=== PATIENT | female | born 2005 | race Caucasian/White ===

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

== ENCOUNTER 2025-06-05 16:54 | Outpatient (CLI) | payer OTHER, SELFPAY ==
--- NOTE | ~2025-06-05 | XR_ITS ---
Left foot Technique: AP and lateral views were obtained. Clinical History: Pain Findings: No acute fracture or dislocation is seen. Osseous alignment is anatomic. Joint spaces are p reserved without erosive or degenerative change. Soft tissues are unremarkable. Impression: Unremarkable left foot radiographs. Reviewed, dictated and finalized at location . Impression: Unremarkable left foot radiographs.
--- NOTE | ~2025-06-05 | XR_ITS ---
Right foot Technique: AP and lateral views were obtained. Clinical History: Pain Findings: No acute fracture or dislocation is seen. Osseous alignment is anatomic. Joint spaces are p reserved without erosive or degenerative change. Soft tissues are unremarkable. Impression: Unremarkable right foot radiographs. Reviewed, dictated and finalized at location . Impression: Unremarkable right foot radiographs.
--- OUTSIDE RECORDS SUMMARY | 2025-06-05 16:58 | XMS_ITS | Clinical Summary ---
Author Organization [facility] Address [address] [place] [id number] Care Team Providers Care Systems Administrator Name Role Phone Radha Bliss MD Primary Care Provider [phone] Allergies Active Allergy Reactions Criticality Noted Date Comments Soap Rash Low 03/03/2022 Laundry soap Medications VOLNEA 0.15-0.02/0.01 MG (12/04) tablet Take 1 tablet by mouth daily. 08/31/2024 Active metFORMIN ER (GLUCOPHAGE-XR) 500 MG 24 hr tablet Take 1 tablet (500 mg total) by mouth daily with breakfast. 08/31/2024 Active naproxen (NAPROSYN) 500 MG tablet Take 1 tablet (500 mg total) by mouth 2 (two) times daily as needed. 06/27/2024 Active FLUoxetine (PROZAC) 20 MG capsule Take 1 capsule (20 mg total) by mouth daily. 06/14/2024 Active Active Problems No known active problems Encounters Date Type Department Care Team Description 04/23/2025 4:42 PM CDT - 04/23/2025 6:29 PM CDT Emergency [facility] [address] [place] [address] [place] [address] Everardo Jasmine MD Urinary Frequency Discharge Disposition: Home or Self Care (Routine Discharge) 04/23/2025 Travel from Last 3 Months Social History Tobacco Use Types Packs/Day Years Used Date Smoking Tobacco: Never Smokeless Tobacco: Never Alcohol Use Standard Drinks/Week Comments Never 0 (1 standard drink = 0.6 oz pur e alcohol) PHQ-2 Answer Date Recorded PHQ-2 Score - If the patient scores above 3, please move on to questions 3-9 0 03/03/2022 Comments No Sex and Gender Information Value Date Recorded Sex Assigned at Female 04/23/2025 4:44 PM CDT Legal Sex Female 11:59 AM CDT Gender Identity Not on file Sexual Orientation Not on file Last Filed Vital Signs Vital Sign Reading Time Taken Comments Blood Pressure 126/77 04/23/2025 6:26 PM CDT Pulse 88 04/23/2025 6:26 PM CDT Temperature 35.4 C (95.8 F) 04/23/2025 4:51 PM CDT Respiratory Rate 16 04/23/2025 6:26 PM CDT Oxygen Saturation 95% 04/23/2025 6:26 PM CDT Inhaled Oxygen Concentration - - Weight 99.8 kg (220 lb) 04/23/2025 4:51 PM CDT Height 162.6 cm (5' 4) 04/23/2025 4:51 PM CDT Body Mass Index 37.76 04/23/2025 4:51 PM CDT Plan of Treatment Health Maintenance Due Date Last Done Comments Annual Physical 2008 Meningococcal B Vaccine (1 of 2 - Standard) 2021 Hepatitis C 2023 COVID-19 Vaccine (3 - season) 2024 09/08/2021, 08/18/2021 DTaP, Tdap and Td Vaccines (7 - Td or Tdap) 06/19/2027 06/19/2017, 06/18/2011, 02/19/2007, Additional history exists Hepatitis B Vaccines Completed 08/17/2006, 01/23/2006, 2005 Pneumococcal Vaccine: Pediatrics (0 to 5 Years) and At-Risk Patients (6 to 49 Years) Aged Out 11/18/2006, 05/15/2006, 03/13/2006, Additional history exists No longer eligible based on patient's age to complete this topic Meningococcal Vaccine Aged Out 06/19/2017 No tree marce eligible based on patient's age to complete this topic HPV Vaccines Completed 05/29/2020, 12/23/2018 RSV Immunizations Under 20 Months Aged Out No longer eligible based on patient's age to complete this topic Procedures Procedure Name Priority Date/Time Associated Diagnosis Comments URINE BACTERIA CULTURE STAT 04/23/2025 5:06 PM CDT URINALYSIS MICRO ONLY Routine 04/23/2025 5:06 PM CDT from Last 3 Months Results * (ABNORMAL) URINE BACTERIA CULTURE (04/23/2025 5:06 PM CDT) SPEC DESCRIPTION URINE CLEAN CATCH 04/23/2025 6:28 PM CDT [facility] SPECIAL REQUESTS NO SPECIAL REQUEST 04/23/2025 6:28 PM CDT [facility] CULTURE RESULT 10,000-49,0 00 COL/ML ESCHERICHIA COLI (A) 04/26/2025 6:46 AM CDT [facility] URINE SPECIMEN OBTAINED BY CLEAN CATCH PROCEDURE / Unknown 04/23/2025 5:06 PM CDT 04/23/2025 6:39 PM CDT Narrative Organism Antibiotic Method Susceptibility Escherichia coli AMPICILLIN SANDEE (VITEK) <=2: Sensitive Escherichia coli AMPICILLIN/SULBACTAM SANDEE (VITEK) <=2: Sensitive Escherichia coli CEFTRIAXONE SANDEE (VITEK) <=1: Sensitive Escherichia coli CEFTAZIDIME SANDEE (VITEK) <=1: Sensitive Escherichia coli CEFAZOLIN SANDEE (VITEK) <=4: Sensitive Escherichia coli ESBL SANDEE (VITEK) NEG: Sensitive Escherichia coli NITROFURANTOIN SANDEE (VITEK) 32: Sensitive Escherichia coli GENTAMICIN SANDEE (VITEK) <=1: Sensitive Escherichia coli LEVOFLOXACIN SANDEE (VITEK) <=0.12: Sensitive Escherichia coli PIPRACIL/TAZO SANDEE (VITEK) <=4: Sensitive Escherichia coli TRIMETH-SULFAMETH. SANDEE (VITEK) <=20: Sensitive Everardo Jasmine MD MICROBIOLOGY - GENERAL QUIANA CHAO Final Result [facility] [address] [place] [address], [place] [phone] [facility] [address] [place] [address] [place] [address], * (ABNORMAL) URINALYSIS MICROSCOPIC ONLY (04/23/2025 5:06 PM CDT) WBC/HPF 33(H) <6 /HPF 04/24/2025 11:29 AM CDT [facility] RBC/HPF 16(H) <6 /HPF 04/24/2025 11:29 AM CDT [facility] AMORPHOUS CRYSTAL MODERATE /HPF 04/24/2025 11:29 AM CDT [facility] SQUAMOUS EPITHELIALS RARE /HPF 04/24/2025 11:29 AM CDT [facility] URINE SPECIMEN OBTAINED BY CLEAN CATCH PROCEDURE / Unknown 04/23/2025 5:06 PM CDT Everardo Jasmine MD URINE ORDERABLES Final Resu lt [facility] [address] [place] [address], from Last 3 Months Insurance [id number] [id number] Care Teams Systems Administrator Relationship Specialty Start Date End Date Radha Bliss MD [address] [place] [address] [address] KENNY [address] [place] [id number] PCP - General FAMILY PRACTICE 04/23/25
== END 2025-06-05 16:55 | disposition home or self-care (01) ==
PROVIDERS: PCP Family Medicine; Visit Provider Student in an Organized Health Care Education/Training Program
DX: M79.671 Pain in right foot (principal); M79.672 Pain in left foot
CPT/HCPCS: 73620

== ENCOUNTER 2025-07-19 07:41 | Outpatient (CLI) | payer OTHER, SELFPAY ==
--- NOTE | 2025-08-14 09:42 | WPDSLEEPSTUD ---
Sleep Study Date of Study: 07/19/25 Ordering Provider: Orville Wilkerson APRN Interpreting Physician: Josefa Elise DO Sleep Study Type: Polysomnogram Height: 1.63 m Weight: 104.326 kg Body Mass Index: 39.4 Neck Circumference (inches): 16 Webster: 11 Reason for Sleep Study Daytime hypersomnia, nocturnal gasping and unrefreshing sleep Sleep History The patient is a 19-year-old female that had a sleep study ordered by her primary care for evaluation of sleep apnea. The patient frequently awakens from sleep short of breath. She denies awakening at night with heartburn, belching or cough. She constantly snores and is frequently loud enough that others complain. She occasionally has trouble sleeping when she has a cold. She frequently wakes up gasping for air throughout the night. She constantly has breathing problems at night observed by herself or others. She frequently sweats excessively at night. She denies having heart palpitations or irregular heartbeats during the night. She rarely falls asleep during the day and never while driving. She denies cataplexy. She frequently has trouble at school or work due to sleepiness. She constantly feels unable to move while waking up or falling asleep. She constantly experiences vivid dreamlike scenes upon awakening or falling asleep. She denies feeling afraid of going to sleep. She constantly has nightmares. She constantly remembers her dreams. She frequently has thoughts racing through her mind. She occasionally feels sad or depressed and frequently feels anxious. She constantly has muscular tension. She denies noticing parts of her body jerk. She occasionally kicks during the night. She denies experiencing any crawling and aching feelings in her legs and denies having leg pain during the night. She denies grinding her teeth during sleep and denies awakening with morning jaw pain. She is occasionally bothered by pain during the day but never awakened by pain during the night. She constantly wakes up feeling stiff in the morning. She constantly wakes up with sore or achy muscles. She constantly wakes up with pain in the neck, spine or other joints. She goes to bed between 11:00 p.m. to midnight on weekdays and between midnight to 1:00 a.m. on the weekends. It takes her 1 hour to fall asleep. She wakes up 4-5 times throughout the night for unknown reasons and it takes 30 minutes to fall back asleep. She wakes up between 7:00 a.m. to noon on weekdays and between 11:00 a.m. to 1:00 p.m. on the weekends. She does not have a set amount of time that she gets for sleep per night. She will stay in bed for 1 hour after waking up in the morning. She currently lives with her mother. She denies consuming any caffeinated beverages within 2 hours of bedtime. She denies engaging in physical exercise before bedtime. She will read and watch television before falling asleep. She will take naps in afternoon or the evening but they are not refreshing. She consumes 12 oz of caffeinated beverage per day. She denies tobacco, alcohol and recreational drug use. [facility] Family History Family History Father Diabetes mellitus Hypertension Family history of elevated blood lipids Grandparent Diabetes mellitus Depression Hypertension Family history of malignant neoplasm of brain Family history of malignant neoplasm of breast Mother Family history of mental disorder Depression Family history of malignant neoplasm of breast in first degree relative Social History Social History Smoking status: Never smoker Alcohol intake: never Substance use: never Substance use type: does not use Do You Feel Safe in your Home?: No Lack of Transportation: No Lack of Food: Never True Current Housing: I Have Housing Concerned About Future Housing: No Difficulty Paying Gas/Electric Bills: No Difficulty Paying for Meds: No Currently Unemployed: No Education: Decline to Answer Difficulty w/ Childcare or Family Care: No Living arrangements: with family Occupation/Education: student Gender identity (if verbalized by the patient): Female Sexual Orientation (if Verbalized by the Patient): Straight or Heterosexual Medications Home Medications ?Medication ?Instructions ?Recorded ?Confirmed ?Type naproxen 500 mg tablet 500 mg PO BID PRN pain #60 tabs 06/27/24 06/06/25 Rx metformin 500 mg tablet,extended 500 mg PO BID #180 tabs 08/31/24 06/06/25 Rx release 24 hr amoxicillin 875 mg-potassium 1 tablet PO Q12H 10 days #20 tabs 07/22/25 Rx clavulanate 125 mg tablet ofloxacin 0.3 % ear drops 5 drp RIGHT EAR BID 7 days #5 mL 07/22/25 Rx Sleep Procedure A full night polysomnogram using the Right On Interactive multi-channel system recorded the standard physiologic parameters including EEG, EOG, submentalis EMG, anterior tibialis EMG, EKG, body position, nasal and oral airflow using nasal pressure sensor and thermistor.? Respiratory parameters of chest and abdominal movements were recorded with Respiratory Inductance Plethysmography belts. Oxygen saturation was recorded by pulse oximetry. Video monitoring was also performed. Sleep stages, periodic limb movements, and EEG arousals were scored in 30 second epochs according to the criteria of the AASM Scoring Manual. The Apnea-Hypopnea Index was calculated using [facility] guidelines for definition of hypopnea with 4% O2 desaturations while scoring respiratory events. Sleep Architecture The total recording time was 408.6 minutes.? The total sleep time was 400.0 minutes. Sleep latency was 3.0 minutes. REM latency was 81.5 minutes. Sleep efficiency was 97.9%. The patient had 11 awakenings for an awakening index of 1.6. Wake after sleep onset time was 6.0 minutes. The patient spent 5.5 minutes, 1.4% of total sleep time in Stage N1. The patient spent 193.5 minutes, 48.4% in Stage N2. The patient spent 139.0 minutes, 34.8% in Stage N3. The patient spent 62.0 minutes, 15.5% in Stage REM sleep. Respiratory Analysis The patient had 55 hypopneas, 2 obstructive apneas and 23 central apneas for an overall Apnea Hypopnea Index of 12.0. The REM Apnea Hypopnea Index was 19.4. The NREM Apnea Hypopnea Index was 11.5. The patient had a Central Apnea Hypopnea Index of 3.5. There was no evidence of Aureliano-Carlson Respirations. Arousals There were 90 total arousals for an arousal index of 13.5. There were 30 spontaneous arousals for an index of 4.5. There were 35 arousals due to respiratory events for an index of 5.3. There were 5 arousals due to periodic limb movements for an index of 0.8.? There were 24 arousals due to isolated limb movements for an index of 3.6. Periodic Limb Movements The patient had 43 isolated limb movements with an index of 6.5. The patient had 14 periodic limb movements with an index of 2.1. Patient had a total of 57 limb movements with a total limb movement index of 8.6. Oximetry Data The patient had an average oxygen saturation of 94.9% in sleep with a minimum oxygen saturation of 88.0% and a maximum oxygen saturation of 99.0%. The patient had 81 oxygen desaturations that were 4% or greater resulting in an Oxygen Desaturation Index of 12.2.? The patient spent 0 minutes of total sleep time with an oxygen saturation below 88%. Snoring Profile Moderate to loud snoring was present throughout the study. Cardiac Profile The EKG showed normal sinus rhythm. No arrhythmias were present throughout the study. The patient had an average pulse rate of 79.0 bpm with a minimum pulse of rate of 61.0 bpm and a maximum pulse rate of 111.0 bpm.? EEG Profile No signs of seizure activity seen. Assessment and Plan Assessment and Plan (1) DAE (obstructive sleep apnea): Code(s): G47.33 - Obstructive sleep apnea (adult) (pediatric) Status: Acute Assessment and Plan: The patient had an overall AHI of 12.0 with desaturation down to 88%. This is consistent with mild sleep apnea. Due to the patient's excessive daytime hypersomnia (ESS of 11/24), the patient qualifies for treatment. I recommend that the patient be prescribed AutoPAP 5-15 cm H2O, CPAP mask/filters/tubing and heated humidity. A mandibular advancement device is also an acceptable treatment option. This should be used with all episodes of sleep.? Compliance should be reviewed within 31-90 days of starting therapy for usage greater than 4 hours per night greater than 70% of the nights. The patient should be asked about symptoms such as?excessive daytime sleepiness, quality of sleep, decreased nocturia, increased?mental functioning such as memory, mood, and concentration. Data The data obtained during this sleep study is adequate for interpretation. Certification This sleep study has been reviewed by a board certified sleep medicine physician.
[2025-08-14 17:01] VITALS: BMI 39.4
== END 2025-07-20 06:56 | disposition home or self-care (01) ==
PROVIDERS: PCP Family Medicine; Visit Provider Student in an Organized Health Care Education/Training Program
DX: G47.10 Hypersomnia, unspecified (principal); G47.9 Sleep disorder, unspecified; G47.33 Obstructive sleep apnea (adult) (pediatric)
CPT/HCPCS: 95810

== ENCOUNTER 2025-07-22 16:42 | Emergency (ER) | payer OTHER, SELFPAY ==
[2025-07-22 16:54] VITALS: BP 115/51; PULSE 83; RESP 18; TEMP 36.4; O2SAT 100
--- NOTE | 2025-07-22 17:07 | ED_ITS ---
HPI - Ear Problem General Chief complaint: Ear Stated complaint: swimmer's ear Time Seen by Provider: 07/22/25 16:43 Source: patient Mode of arrival: ambulatory Limitations: no limitations History of Present Illness HPI Narrative: 19-year-old female presents to [facility] with complaints of right ear pain and yellow colored drainage for the past 10 days. Patient reports that she did go swimming prior to symptoms starting. Patient has been taking [id number] Tylenol with little relief. Patient reports last ear infection was approximately 10 years ago. Patient denies sick contacts. Patient denies recent travel. Patient denies fever, body aches, chills, nausea, vomiting or diarrhea. MD Complaint: ear pain and ear discharge Location: right ear Duration: constant Severity: mild Discharge from ear: Reports yes - purulent Treatment prior to arrival: oral analgesic Related Data Allergies Allergy/AdvReac Type Severity Reaction Status Date / Time No Known Allergies Allergy Mild Verified 07/22/25 16:52 Review of Systems Constitutional: Constitutional: Denies chills, Denies fatigue, Denies fever(s) and Denies weakness ENT: Denies vertigo, Denies dizziness, Denies epistaxis, Denies nasal congestion and Denies sore throat Comments: Right ear pain and drainage Cardiovascular: Cardiovascular: Denies chest pain Respiratory: Respiratory: Denies cough, Denies dyspnea and Denies wheezing Gastrointestinal: Gastrointestinal: Denies diarrhea, Denies nausea and Denies vomiting Musculoskeletal: Musculoskeletal: Denies arthralgias and Denies joint swelling Integumentary/Breasts: Skin/Breast: Denies pruritus, Denies erythema and Denies rash Neurologic: Denies dizziness, Denies syncope and Denies headache(s) [facility] Family History Family History Father Diabetes mellitus Hypertension Family history of elevated blood lipids Grandparent Diabetes mellitus Depression Hypertension Family history of malignant neoplasm of brain Family history of malignant neoplasm of breast Mother Family history of mental disorder Depression Family history of malignant neoplasm of breast in first degree relative Social History Social History Smoking status: Never smoker Alcohol intake: never Substance use: never Substance use type: does not use Do You Feel Safe in your Home?: No Lack of Transportation: No Lack of Food: Never True Current Housing: I Have Housing Concerned About Future Housing: No Difficulty Paying Gas/Electric Bills: No Difficulty Paying for Meds: No Currently Unemployed: No Education: Decline to Answer Difficulty w/ Childcare or Family Care: No Living arrangements: with family Occupation/Education: student Gender identity (if verbalized by the patient): Female Sexual Orientation (if Verbalized by the Patient): Straight or Heterosexual Comments At time of signature, I agree with nursing past medical, surgical, social and family history. There is no relevant family history pertinent to the presenting complaint. Exam Const: General: healthy appearing and no acute distress Nutritional Appearance: well nourished Orientation/consciousness: patient oriented x3 HENMT: Head: normal to inspection Ears: Abnormal EAC present erythema on the right and TM abnormal dull on the right and erythematous on the right Face/Nose/Sinus: Normal external nose present and Normal nares present Mouth: Yes Normal oral and palatal mucosa present and Yes moist mucous membranes T eeth and gingiva: dentition normal Throat: posterior oropharynx normal and uvula midline Eyes: Conjunctivae: conjunctivae normal Neck: Neck: normal visual inspection Resp: Effort & Inspection: normal respiratory effort and not labored Auscultation: clear to auscultation bilaterally, no crackles, no rales, no rhonchi and no wheezes Cardio: Rate: regular rate Rhythm: regular rhythm Heart sounds: no murmurs Skin: General skin exam: normal color Rashes: no rashes Neuro: General: patient oriented x3 and moves all extremities Speech: normal speech Gait exam (Neuro): Normal gait present Extrem: General: normal to inspection Psych: Affect: normal affect Attitude: cooperative Course Course Level of Care: Express Care Visit Vital Signs Vital signs: Vital Signs Temperature 36.4 C 07/22/25 16:54 Pulse Rate 83 07/22/25 16:54 Respiratory Rate 18 07/22/25 16:54 Blood Pressure 115/51 L 07/22/25 16:54 Pulse Oximetry 100 07/22/25 16:54 Oxygen Delivery Room Air 07/22/25 16:54 Temperature 36.4 C 07/22/25 16:54 Pulse Rate 83 07/22/25 16:54 Respiratory Rate 18 07/22/25 16:54 Blood Pressure 115/51 L 07/22/25 16:54 Pulse Oximetry 100 07/22/25 16:54 Oxygen Delivery Room Air 07/22/25 16:54 Medical Decision Making MDM Narrative Medical decision making narrative: educated patient to avoid getting water in her right ear. Informed patient alternate Motrin and Tylenol as needed. Educated patient to follow-up with primary care provider if symptoms do not improve Differential Diagnosis Differential Diagnosis: Acute otalgia, cerumen impaction, viral illness Vital Signs Vital Signs: Vital Signs Temperature 36.4 C 07/22/25 16:54 Pulse Rate 83 07/22/25 16:54 Respiratory Rate 18 07/22/25 16:54 Blood Pressure 115/51 L 07/22/25 16:54 Pulse Oximetry 100 07/22/25 16:54 Oxygen Delivery Room Air 07/22/25 16:54 Temperature 36.4 C 07/22/25 16:54 Pulse Rate 83 07/22/25 16:54 Respiratory Rate 18 07/22/25 16:54 Blood Pressure 115/51 L 07/22/25 16:54 Pulse Oximetry 100 07/22/25 16:54 Oxygen Delivery Room Air 07/22/25 16:54 Critical Care Time Critical Care Time Critical Care Time: No Discharge Plan Discharge Clinical Impression: Otitis externa Qualifiers: Otitis externa type: swimmer's ear Chronicity: acute Laterality: right Qualified Code(s): H60.331 - Swimmer's ear, right ear Otitis media Qualifiers: Otitis media type: unspecified Chronicity: acute Qualified Code(s): H66.90 - Otitis media, unspecified, unspecified ear Patient Disposition: Home Condition: Stable Instructions: Antibiotic Form, Swimmer's Ear (ED), Ear Infection (ED) Additional Instructions: alternate Motrin and Tylenol as needed for pain Avoid getting water in your right ear Take antibiotic and use ear drops as prescribed Follow-up with primary care provider if symptoms not improved Proceed to the emergency room if symptoms worsen Patient Language: Tamazight Prescriptions: New amoxicillin-pot clavulanate 875-125 mg tablet 1 tablet PO Q12H 10 Days Qty: 20 0RF ofloxacin 0.3 % drops 5 drp RIGHT EAR BID 7 Days Qty: 5 0RF No Action metformin 500 mg tablet extended release 24 hr 500 mg PO BID Qty: 180 3RF Rx Instructions: week 1: 1 po q dinner. week2: 1 po breakfast and dinner naproxen 500 mg tablet 500 mg PO BID PRN (Reason: pain) Qty: 60 0RF Rx Instructions: LAST REFILL UNTIL SEEN Follow-up/Referrals: Radha Bliss MD [Primary Care Provider, [facility]] Time of Disposition: 17:12
== END 2025-07-22 17:15 | disposition home or self-care (01) ==
PROVIDERS: Emergency Provider Nurse Practitioner Family; PCP Family Medicine
DX: H60.331 Swimmer's ear, right ear (principal); H66.91 Otitis media, unspecified, right ear
CPT/HCPCS: 99213; G0463